=== PATIENT | male | born 1995 | race Caucasian/White ===

== ENCOUNTER 2016-05-04 17:41 | Emergency (ER) | payer OTHER ==
[~2016-05-04] VITALS: Ht 182.9 cm; Wt 73.9 kg
[2016-05-04 17:55] VITALS: TEMP 37.2; Ht 182.9 cm; Wt 73.9 kg
[2016-05-04] MEDS ORDERED: XYLOCAINE 1%/SOD BICARB 20 ML VIAL INFIL ONE (18:45)
--- NOTE | 2016-05-04 19:13 | EMERGENCY ROOM VISIT NOTE ---
ED Visit Note First contact with patient: 18:15 CHIEF COMPLAINT: Hand laceration at work earlier today HISTORY OF PRESENT ILLNESS: Patient is a [id number] 20-year-old white male who cut the back of his right hand at work earlier today. He reached into a cooler, and when he pulled his hand out, noticed bleeding. He had a flap- like laceration on the dorsal aspect of the right second MCP. He was unable to get the bleeding controlled with pressure bandages, and ultimately put superglue over it. The bleeding has stopped. Denies weakness or numbness of the finger. REVIEW OF SYSTEMS: Review of systems as per HPI. All other systems reviewed were negative. At least 6 systems reviewed. PMH: Electronic medical records are reviewed and summarized as above/below. See Problem List. Tetanus is up-to-date. SOCIAL HISTORY: Patient lives at home. College student. PHYSICAL EXAM: Vital Signs: Reviewed Nurse's notes. There is a 1 cm long laceration on the dorsal aspect of the right hand, over the second MCP joint. The edges gape apart with traction. There is no foreign material in the wound and it looks clean. There is no bleeding. No deep structures such as tendons or nerves are seen in the base of the wound. Extension and flexion of the finger is full and strong. Capillary refills less than 2 seconds. EMERGENCY DEPARTMENT COURSE: Using sterile technique, saline and Betadine cleansing, and 1% lidocaine anesthesia, the laceration was repaired with 2, 5-0 nylon sutures. There is no evidence for extensor tendon injury. Current/Historical Medications No Active Prescriptions or Reported Meds Allergies Coded Allergies: Amoxicillin (Verified Allergy, Unknown, Unknown, 05/04/16) Azithromycin (Verified Allergy, Unknown, Unknown, 05/04/16) Penicillins (Verified Allergy, Unknown, Unknown, 05/04/16) Vital Signs Date Time Temp Pulse Resp B/P Pulse Ox O2 Delivery O2 Flow Rate FiO2 05/04/16 19:27 82 18 131/85 95 05/04/16 17:55 37.2 81 18 134/95 95 Room Air Departure Information Impression Primary Impression: Laceration of hand Additional Impression: Work related injury Prescriptions No Active Prescriptions or Reported Meds Referrals No Doctor, Assigned (PCP) Patient Instructions [facility] Additional Instructions Keep wound clean and dry. Do not allow any crusting or dried blood to accumulate on sutures. If this occurs, use a 1:1 solution of hydrogen peroxide/ water on a Q-tip to clean the wound. Use an antibiotic ointment for 3-4 days, then let wound dry. Suture removal in 10-12 days. Return sooner for any signs of infection (increasing redness, swelling, drainage). Ice and elevate for swelling and pain. Ibuprofen 600 mg and Tylenol 1000 mg every 6 hrs for pain. Problem Qualifiers Primary Impression: Laceration of hand Encounter type: initial encounter Laterality: right Qualified Codes: S61.411A - Laceration without foreign body of right hand, initial encounter
[2016-05-04 19:27] VITALS: BP 131/85; PULSE 82; O2SAT 95
== END 2016-05-04 19:31 | disposition home or self-care (01) ==
LOC: C.EDB 17:42 → C.EDD 19:31
DX: S61.411A Laceration without foreign body of right hand, initial encounter (principal); W45.8XXA Other foreign body or object entering through skin, initial encounter; Y92.89 Other specified places as the place of occurrence of the external cause; Y99.0 Civilian activity done for income or pay

== ENCOUNTER 2016-10-17 21:32 | Emergency (ER) | payer OTHER ==
[~2016-10-17] VITALS: Ht 182.9 cm; Wt 78.4 kg
[2016-10-17] MEDS ORDERED: SODIUM CHLORIDE 0.9% 1000ML 1,000 ML IV STA ×2 (21:51)
[2016-10-17] MEDS ORDERED: CEFTRIAXONE SOD INJ 2,000 MG in DEXTROSE 5% 50ML 50 ML IV STA (21:51)
[2016-10-17] MEDS ORDERED: DEXAMETHASONE SOD INJ 10 MG/ML VIAL IV ONE (22:00)
[2016-10-17] MEDS ORDERED: FEXO1TAB49 PO (22:02)
[2016-10-17 22:09] VITALS: Ht 182.9 cm; Wt 78.4 kg
--- NOTE | 2016-10-17 22:21 | DIAGNOSTIC IMAGING REPORT ---
CHEST ONE VIEW PORTABLE CLINICAL HISTORY: Sepsis. COMPARISON STUDY: No previous studies for comparison. FINDINGS: Lung volumes are normal. Lungs are clear. There is no pneumothorax or pleural effusion. Cardiac size is normal. Mediastinal contours are normal. There is no evidence of pulmonary edema. IMPRESSION: No acute cardiopulmonary findings. Electronically signed by: Dorian Parkinson M.D. 10/17/2016 10:20 PM Dictated Date/Time: 10/17/2016 10:18 PM
[2016-10-17 22:41] LABS: BASO % 0.3 %; BASO ABS # 0.03 K/uL (0-0.2); COMPLETE YES; EOS % 1.2 %; HEMATOCRIT 42.8 % (42-52); IG% 0.3 %; LYMPH % 19.9 %; LYMPH ABS # 1.89 K/uL (1.2-3.4); MEAN CORPUSCULAR HEMOGLOBIN 31.5 pg (25-34); MEAN CORPUSCULAR HGB CONC 36.2 g/dl (32-36); MEAN PLATELET VOLUME 10.8 fL (7.4-10.4); MONO % 8.9 %; NEUT % 69.4 %; PLATELET COUNT 218 K/uL (130-400); RED BLOOD COUNT 4.92 M/uL (4.7-6.1); WHITE BLOOD COUNT 9.52 K/uL (4.8-10.8)
[2016-10-17 22:50] LABS: PARTIAL THROMBOPLASTIN RATIO 1.1
[2016-10-17 22:58] LABS: BUN/CREATININE RATIO 15.4 (10-20); CALCIUM 9.3 mg/dl (8.5-10.1); CREATININE 1.1 mg/dl (0.60-1.40); POTASSIUM 3.7 mmol/L (3.5-5.1)
--- NOTE | 2016-10-17 23:00 | DIAGNOSTIC IMAGING REPORT ---
CT OF THE HEAD WITHOUT CONTRAST CLINICAL HISTORY: ALCANTARA/fever/neck stiff. COMPARISON STUDY: No previous studies for comparison. CT DOSE: 537.48 mGy.cm TECHNIQUE: Helical axial images of the head were obtained without IV contrast. Automated exposure control was utilized for the study. A dose lowering technique was utilized adhering to the principles of ALARA. FINDINGS: No acute intracranial hemorrhage, midline shift or mass effect is present. Ventricular system is normal. Basilar cisterns are patent. No extra-axial collections are present. Combs-white differentiation is maintained. There are no findings to suggest acute dural sinus thrombosis or acute territorial infarct. There are no calvarial abnormalities. Visualized portions of the sinuses and the mastoid air cells are clear. The adenoids are enlarged. IMPRESSION: 1. No acute intracranial findings. 2. Enlarged adenoids. Electronically signed by: Dorian Parkinson M.D. 10/17/2016 10:58 PM Dictated Date/Time: 10/17/2016 10:54 PM
[2016-10-17 23:01] LABS: ALB/GLOB RATIO 1.1 (0.9-2)
[2016-10-17 23:27] LABS: LYME DISEASE AB IGG NEG (NEG); LYME DISEASE AB IGM NEG (NEG)
[2016-10-17 23:58] LABS: CSF TOTAL PROTEIN 41.4 mg/dl (15.0-45.0)
[2016-10-18 00:01] LABS: URINE APPEARANCE CLEAR (CLEAR); URINE BILIRUBIN NEG (NEG); URINE COLOR YELLOW; URINE NITRITE NEG (NEG); URINE PH 6.5 (4.5-7.5); URINE SPECIFIC GRAVITY 1.023 (1.000-1.030); UROBILINOGEN NEG (NEG); ZZUR CULT IF INDIC CLEAN CATCH NO
[2016-10-18 00:06] LABS: CSF APPEARANCE CLEAR; CSF COLOR COLORLESS; CSF XANTHOCHROMIC NO XANTHOCHROMIA
[2016-10-18 00:07] LABS: CSF CHEMISTRY TUBE # 2
[2016-10-18 00:11] LABS: MANUAL MICROSCOPIC REQUIRED? NO; REVIEW REQ? NO
--- NOTE | 2016-10-18 00:26 | EMERGENCY ROOM VISIT NOTE ---
History First contact with patient: 21:39 Chief Complaint: NECK PAIN Stated Complaint: SORE THROAT, STIFF NECK, HEAD/NECK PAIN History of Present Illness The patient is a 21 year old male who presents to the Emergency Room with complaints of headache, neck stiffness, fever, chills, occasional sore throat with cough that has been steadily increasing for the past 3 days has had an on and off sore throat for the past 3 weeks. Patient was at urgent care 3 weeks ago and had a negative strep test. He went health services for a sore in the back of his throat and was not told anything about this but was not given any medications for this. Patient states today he went to the health services as his symptoms were increasing mid did a Monospot that was negative and a repeat strep test was negative. He was told this could possibly be meningitis. Patient then comes here as his symptoms are getting progressively worse. Patient states max temperature is 101 on Saturday. He took Motrin today at 1 PM. He states his neck feels stiff when he bends it and has a frontal headache described as throbbing, 6 out of 10. Nothing makes it better or worse. No history of tick bites. [place] travel [place] Patient is a [employer] student. Patient denies chest pain, dyspnea, dysphagia, abdominal pain, vomiting, diarrhea. He is time by mouth fluids and food. No rashes. Review of Systems See HPI for pertinent positives & negatives. A total of 10 systems reviewed and were otherwise negative. Past Medical/Surgical History Medical Problems: (1) No Known Active Medical Problems Social History Smoking Status: Never Smoker Smokeless Tobacco Use: Yes Alcohol Use: occasionally Drug Use: none Occupation Status: [employer] student Current/Historical Medications Scheduled PRN Fexofenadine Hcl (Leigh Allergy), 1 TAB PO DAILY PRN for CONGESTION Physical Exam Vital Signs Date Time Temp Pulse Resp B/P (MAP) Pulse Ox O2 Delivery O2 Flow Rate FiO2 10/18/16 00:12 36.9 66 16 141/80 98 Room Air 10/17/16 23:03 70 20 130/90 99 Room Air 10/17/16 22:21 79 10/17/16 22:09 Room Air 10/17/16 21:36 37.1 91 16 149/109 97 Room Air Physical Exam VITALS: Vitals are noted on the nurse's note and reviewed by myself. Vital signs stable. GENERAL: Pleasant male, in no acute distress, nondiaphoretic, well-developed well-nourished. SKIN: The skin was without rashes, erythema, edema, or bruising. There is no tenting of the skin. Capillary reflex less than 2 seconds. HEAD: Normocephalic atraumatic. EARS: External auditory canals clear, tympanic membranes pearly combs without erythema or effusion bilaterally. EYES: Pupils equal round and reactive to light and accommodation. Conjunctivae without injection, sclerae without icterus. Extraocular movements intact. NOSE: Patent, turbinates without inflammation or discharge. No sinus tenderness. MOUTH: Mucous membranes moist. Pharynx with mild erythema without exudate. Uvula midline. Airway patent. Tongue does not deviate. NECK: Supple without nuchal rigidity. Patient complained of posterior neck discomfort with chin to chest. No lymphadenopathy. No thyromegaly. Cervical spine is nontender. No JVD. HEART: Regular rate and rhythm without murmurs gallops or rubs. LUNGS: Clear to auscultation bilaterally without wheezes, rales or rhonchi. No dullness to percussion. No retractions or accessory muscle use. ABDOMEN: Positive bowel sounds x 4. Normal tympanic percussion. Soft, nontender, without masses or organomegaly. Blair sign negative. No guarding or rebound tenderness. MUSCULOSKELETAL: No muscle atrophy, erythema, or edema noted. NEURO: Patient was alert and oriented to person place and time. Normal sensation to light and sharp touch. No focal neurological deficits. Medical Decision & Procedures Laboratory Results 10/17/16 22:12 Red Blood Count 4.92, Mean Corpuscular Volume 87.0, Mean Corpuscular Hemoglobin 31.5, Mean Corpuscular Hemoglobin Concent 36.2, Mean Platelet Volume 10.8, Neutrophils (%) (Auto) 69.4, Lymphocytes (%) (Auto) 19.9, Monocytes (%) (Auto) 8.9, Eosinophils (%) (Auto) 1.2, Basophils (%) (Auto) 0.3, Neutrophils # (Auto) 6.61, Lymphocytes # (Auto) 1.89, Monocytes # (Auto) 0.85, Eosinophils # (Auto) 0.11, Basophils # (Auto) 0.03 7/26/17 22:12 Test 10/17/16 22:12 10/17/16 22:30 10/17/16 23:20 10/17/16 23:40 White Blood Count 9.52 K/uL (4.8-10.8) Red Blood Count 4.92 M/uL (4.7-6.1) Hemoglobin 15.5 g/dL (14.0-18.0) Hematocrit 42.8 % (42-52) Mean Corpuscular Volume 87.0 fL (80-100) Mean Corpuscular Hemoglobin 31.5 pg (25-34) Mean Corpuscular Hemoglobin Concent 36.2 g/dl (32-36) Platelet Count 218 K/uL (130-400) Mean Platelet Volume 10.8 fL (7.4-10.4) Neutrophils (%) (Auto) 69.4 % Lymphocytes (%) (Auto) 19.9 % Monocytes (%) (Auto) 8.9 % Eosinophils (%) (Auto) 1.2 % Basophils (%) (Auto) 0.3 % Neutrophils # (Auto) 6.61 K/uL (1.4-6.5) Lymphocytes # (Auto) 1.89 K/uL (1.2-3.4) Monocytes # (Auto) 0.85 K/uL (0.11-0.59) Eosinophils # (Auto) 0.11 K/uL (0-0.5) Basophils # (Auto) 0.03 K/uL (0-0.2) RDW Standard Deviation 38.2 fL (36.4-46.3) RDW Coefficient of Variation 12.0 % (11.5-14.5) Immature Granulocyte % (Auto) 0.3 % Immature Granulocyte # (Auto) 0.03 K/uL (0.00-0.02) Prothrombin Time 11.0 SECONDS (9.0-12.0) Prothromb Time International Ratio 1.0 (0.9-1.1) Activated Partial Thromboplast Time 27.4 SECONDS (21.0-31.0) Partial Thromboplastin Ratio 1.1 Anion Gap 6.0 mmol/L (3-11) Est Creatinine Clear Calc Drug Dose 116.6 ml/min Estimated GFR () 110.6 Estimated GFR (Non- 95.5 BUN/Creatinine Ratio 15.4 (10-20) Calcium Level 9.3 mg/dl (8.5-10.1) Total Bilirubin 0.3 mg/dl (0.2-1) Aspartate Amino Transf (AST/SGOT) 14 U/L (15-37) Alanine Aminotransferase (ALT/SGPT) 33 U/L (12-78) Alkaline Phosphatase 65 U/L (45-117) Total Protein 7.6 gm/dl (6.4-8.2) Albumin 3.9 gm/dl (3.4-5.0) Globulin 3.7 gm/dl (2.5-4.0) Albumin/Globulin Ratio 1.1 (0.9-2) Lyme Disease IgG Antibody NEG (NEG) Lyme Disease IgM Antibody NEG (NEG) Monoscreen NEG (NEG) Bedside Lactic Acid Venous 0.52 mmol/L (0.90-1.70) CSF Color COLORLESS CSF Appearance CLEAR CSF WBC 1 /uL (0-5) CSF RBC 0 /uL (0) CSF Xanthrochromic NO XANTHOCHROMIA CSF Cell Count Tube # 4 CSF Chemistry Tube # 2 CSF Glucose 54 mg/dl (40-70) CSF Total Protein 41.4 mg/dl (15.0-45.0) Urine Color YELLOW Urine Appearance CLEAR (CLEAR) Urine pH 6.5 (4.5-7.5) Urine Specific [place] 1.023 (1.000-1.030) Urine Protein NEG (NEG) Urine Glucose (UA) NEG (NEG) Urine Ketones NEG (NEG) Urine Occult Blood NEG (NEG) Urine Nitrite NEG (NEG) Urine Bilirubin NEG (NEG) Urine Urobilinogen NEG (NEG) Urine Leukocyte Esterase NEG (NEG) Urine WBC (Auto) 0 /hpf (0-5) Urine RBC (Auto) 0-4 /hpf (0-4) Urine Hyaline Casts (Auto) 1-5 /lpf (0-5) Urine Epithelial Cells (Auto) 5-10 /lpf (0-5) Urine Bacteria (Auto) NEG (NEG) Medications Administered Medications (Trade) Dose Ordered Sig/Rut Route Start Time Stop Time Status Last Admin Dose Admin Sodium Chloride 1,000 ml @ 999 mls/hr Q1H1M STAT IV 10/17/16 21:51 10/17/16 22:51 DC 10/17/16 22:10 999 MLS/HR Sodium Chloride 1,000 ml @ 125 mls/hr Q8H STAT IV 10/17/16 21:51 10/18/16 05:50 10/17/16 23:37 125 MLS/HR Dexamethasone Sodium Phosphate (Decadron Inj) 10 mg NOW ONCE IV 10/17/16 22:00 10/17/16 22:01 DC 10/17/16 22:59 10 MG Ceftriaxone Sodium 2000 mg/ Dextrose 70 ml @ 100 mls/hr ONE STAT IV 10/17/16 21:51 10/17/16 22:32 DC 10/17/16 22:59 100 MLS/HR Procedure Lumbar Puncture Indication: r/o meningitis. Verbal consent was obtained after the risks and benefits were explained, including but not limited to headache, bleeding/clotting, scarring, infection, pain, and bone/joint/nerve damage. At this time, the risks of the procedure are less than the risks of NOT performing the procedure. A time out was taken and the correct patient and site identified. The patient was placed in the sitting position and the back was prepped with betadine and draped in the standard fashion. The L3 intervertebral space was identified, anesthetized locally with 1 % lidocaine without epinephrine, and the spinal needle was inserted through the skin with the bevel parallel to the dural fibers. The needle was carefully advanced into the lumbar cistern and 4 tubes of clear CSF was obtained. The stylet was replaced and the needle was removed. A bandaid was placed and the patient was placed in the supine position. The patient tolerated the procedure well and there were no complications. ED Course Prior records/ancillary studies reviewed. Triage Nursing notes reviewed. The patient's history was concerning for fever, sore throat, headache, neck discomfort. Differential diagnosis: Etiologies such as viral syndrome, lymes, mono, otitis, pharyngitis, pneumonia, influenza, meningitis, urinary tract infection, sepsis, bacteremia, as well as others were entertained. Physical examination: Patient is alert and tolerating fluids ER treatment provided: IV fluids, Decadron, Rocephin On reassessment the patient felt better. Diagnostics interpreted by me: The labs revealed negative CSF. Negative lactic acid Blood cultures pending Imaging studies: CHEST ONE VIEW PORTABLE CLINICAL HISTORY: Sepsis. COMPARISON STUDY: No previous studies for comparison. FINDINGS: Lung volumes are normal. Lungs are clear. There is no pneumothorax or pleural effusion. Cardiac size is normal. Mediastinal contours are normal. There is no evidence of pulmonary edema. IMPRESSION: No acute cardiopulmonary findings. Electronically signed by: Dorian Parkinson M.D. CT OF THE HEAD WITHOUT CONTRAST CLINICAL HISTORY: [place]/fever/neck stiff. COMPARISON STUDY: No previous studies for comparison. CT DOSE: 537.48 mGy.cm TECHNIQUE: Helical axial images of the head were obtained without IV contrast. Automated exposure control was utilized for the study. A dose lowering technique was utilized adhering to the principles of ALARA. FINDINGS: No acute intracranial hemorrhage, midline shift or mass effect is present. Ventricular system is normal. Basilar cisterns are patent. No extra-axial collections are present. Combs-white differentiation is maintained. There are no findings to suggest acute dural sinus thrombosis or acute territorial infarct. There are no calvarial abnormalities. Visualized portions of the sinuses and the mastoid air cells are clear. The adenoids are enlarged. IMPRESSION: 1. No acute intracranial findings. 2. Enlarged adenoids. Electronically signed by: Dorian Parkinson M.D. This appears to be consistent with headache, fever and sore throat with neck discomfort most likely viral in etiology. Negative meningitis workup. Negative Lyme's test. Negative lactic acid.. Patient was neurovascularly and neurologically intact. He is well-appearing. He was counseled on the LP and spinal headaches. He was advised to rest, stay well-hydrated and follow-up health services a day or 2 or here in the ER sooner for high fevers, lethargy, spinal headache, worsening signs or symptoms or as needed. By the evaluation outlined above emergent etiologies such as otitis, pharyngitis, pneumonia, meningitis, urinary tract infection, sepsis, bacteremia, as well as others were deemed relatively unlikely. The pt informed about the findings as listed above. All questions were answered and pleased with the treatment. Return instructions were outlined and the patient was discharged in stable condition. Referral: The patient was referred back to their primary care physician for follow-up in 2 to 3 days for a recheck of the current condition. Case reviewed with my attending Medical Decision As above Medication Reconcilliation Current Medication List: was personally reviewed by me Blood Pressure Screening Patient's blood pressure: Normal blood pressure Impression Primary Impression: Headache Additional Impression: Pharyngitis Departure Information Dispostion Home / Self-Care Condition GOOD Referrals No Doctor, Assigned (PCP) Patient Instructions [facility] Additional Instructions You had a lumbar puncture today. If you develope a headache when you sit up that resolves when you lay down and does not go away Tylenol or Motrin you may come to the ER for possible blood patch for the next 48 hours. Acetaminophen(Tylenol) may be used for fever or pain. Use 1000mg every six hours as needed. Avoid using more than 4000mg in a 24 hour period. (AND/OR) Ibuprofen(Motrin, Advil) may be used for fever or pain. Use 600mg every six hours as needed. Take with food. Avoid using more than 2400mg in a 24 hour period. Do not use 2400mg per day for more than three consecutive days without physician direction. Prolonged inappropriate use can lead to stomach upset or ulcers. Afrin nasal spray: 2-3 sprays to each nostril twice daily as needed for congestion. Do not use for more than 3-4 days because it can lead to worsening rebound congestion. Pseudoephedrine(Sudaphed): 30-60mg every 6 hours as needed for nasal congestion. Do not take this with other stimulant products or supplements. Rest and drink plenty of fluids. Controlling your fever with Tylenol and Ibuprofen as above will make you feel better. Wash your hands after nose blowing, sneezing, or coughing. Most germs are spread through contact, therefore improper hygiene may result in your close contacts and loved ones becoming ill just like you. Continue current medications. Return to the ER for severe headache, neck stiffness, chest pain, difficulty breathing, fevers, vomiting, worsening of your condition, or as needed. Follow up with your primary physician this week for a recheck of your current condition. Problem Qualifiers Primary Impression: Headache Headache type: unspecified Headache chronicity pattern: acute headache Intractability: not intractable Qualified Codes: R51 - Headache
[2016-10-18 00:47] VITALS: BP 136/84; PULSE 73; TEMP 36.8; O2SAT 98
== END 2016-10-18 00:48 | disposition home or self-care (01) ==
LOC: C.EDB 21:34
DX: R51 Headache (principal); J02.9 Acute pharyngitis, unspecified; F17.290 Nicotine dependence, other tobacco product, uncomplicated

== ENCOUNTER 2016-10-19 13:50 | Emergency (ER) | payer OTHER ==
[~2016-10-19] VITALS: Ht 182.9 cm; Wt 79.8 kg
[~2016-10-19 13:50] MED LIST: FEXO1TAB49 PO
[2016-10-19 13:53] VITALS: TEMP 36.7; Ht 182.9 cm; Wt 79.8 kg
[2016-10-19] MEDS ORDERED: SODIUM CHLORIDE 0.9% 1000ML 1,000 ML IV STA (14:15)
[2016-10-19] MEDS ORDERED: CAFFEINE CITRATE 500 MG in SODIUM CHLORIDE 0.9% 1000ML 1,000 ML IV ONE (14:30)
[2016-10-19 17:00] VITALS: O2SAT 99
[2016-10-19] MEDS ORDERED: BUTALBITAL/ACETAMIN/CAFFEINE TAB PO STA (17:26)
[2016-10-19] MEDS ORDERED: EMPTY 8 DRAM VIAL ONE (17:34)
[2016-10-19] MEDS ORDERED: KETOROLAC TROMETHAMINE 30 MG/ML VIAL IV STA (18:06)
[2016-10-19 18:20] VITALS: BP 138/101; PULSE 80
--- NOTE | 2016-10-19 20:17 | EMERGENCY ROOM VISIT NOTE ---
History Report prepared by Alhaji: Ben Dill Under the Supervision of: Dr. Carmelo Peralta M.D. First contact with patient: 13:58 Chief Complaint: HEADACHE Stated Complaint: ALCANTARA WHEN SITTING/STANDING-RECENT LUMBAR PUNCTURE History of Present Illness The patient is a 21 year old male who presents to the Emergency Room with complaints of an intermittent headache beginning 2 days ago. The patient's records state that he was seen 2 days ago in the ED for a headache, neck stiffness, and fever to rule out meningitis. They note that a lumbar puncture was performed, and it was negative. The patient states that since then, he develops a headache anytime he tries to stand up or move. He reports that yesterday his headache was a 7/10, and today it was a 6/10. The patient states that it his headache inhibits his daily activities. He reports that yesterday he was walking home from class and got extremely lightheaded. The patient notes that when he lies down, his headache is resolved. He states that his previous flu symptoms have resolved. The patient reports that he tried taking Motrin and Tylenol, but they did not help. He notes that he only takes a daily dose of Leigh. The patient denies other medical problems. Pt denies LOC, fevers, chills, diaphoresis, visual changes, neck pain, chest pain, breathing difficulties, nausea, vomiting, abdominal pain, back pain, melena, hematochezia , urinary symptoms, numbness, weakness, lymphadenopathy, rash, or other complaints. Source of History: patient Onset: 2 days ago Position: head Quality: ache Timing: intermittent Modifying Factors (Worsening): exertion, movement, other (sitting up) Modifying Factors (Relieving): rest Note: Associated symptoms: lightheadedness Review of Systems See HPI for pertinent positives and negatives. A total of ten systems were reviewed and were otherwise negative. Past Medical & Surgical Medical Problems: (1) Asthma (2) Bronchitis (3) Skin problem Family History Cancer Diabetes mellitus Heart disease Hypertension Social History Smoking Status: Never Smoker Smokeless Tobacco Use: Yes (1/3 can a day) Alcohol Use: occasionally Drug Use: none Occupation Status: [employer] student Current/Historical Medications Scheduled PRN Fexofenadine Hcl (Leigh Allergy), 1 TAB PO DAILY PRN for CONGESTION Allergies Coded Allergies: Amoxicillin (Verified Allergy, Unknown, HAPPENED A CHILD, 10/17/16) Azithromycin (Verified Allergy, Unknown, HAPPENED A CHILD, 10/17/16) Penicillins (Verified Allergy, Unknown, HAPPENED A CHILD, 10/17/16) Physical Exam Vital Signs Date Time Temp Pulse Resp B/P (MAP) Pulse Ox O2 Delivery O2 Flow Rate FiO2 10/19/16 18:20 80 20 138/101 10/19/16 17:00 76 20 138/99 99 Room Air 10/19/16 16:05 72 20 145/100 99 Room Air 10/19/16 13:53 36.7 77 18 142/93 97 Room Air Physical Exam GENERAL: Awake, alert, well appearing, no distress HENT: Normocephalic, atraumatic. TM's normal. Oropharynx unremarkable. EYES: PERRL. EOMI. Normal conjunctiva. Sclera non-icteric. NECK: Supple. No nuchal rigidity. FROM. No JVD or bruit. RESPIRATORY: CTA CARDIAC: RRR. No murmur. ABDOMEN: Soft, non distended. No tenderness to palpation. No rebound or guarding. No masses. RECTAL: Deferred. MUSCULOSKELETAL: Unremarkable. No edema. No discoloration. Gross motor strength symmetric. NEURO: Cranial nerves 2-12 grossly intact. Normal sensorium. No sensory or motor deficits noted. Speech normal. No pronator drift. Subjective return of headache from changing form supine to seated position. SKIN: No rash or jaundice noted. LYMPH: No adenopathy. Medical Decision & Procedures Medications Administered Medications (Trade) Dose Ordered Sig/Rut Route Start Time Stop Time Status Last Admin Dose Admin Sodium Chloride 1,000 ml @ 999 mls/hr Q1H1M STAT IV 10/19/16 14:15 10/19/16 15:15 DC 10/19/16 14:43 999 MLS/HR Caffeine Citrated 500 mg/Sodium Chloride 1,025 ml @ 512.5 mls/ hr TODAY@1430 ONCE IV 10/19/16 14:30 10/19/16 16:29 DC 10/19/16 14:47 512.5 MLS/HR Acetaminophen/ Butalbital/ Caffeine (Fioricet Tab) 4 tab NOW STAT PO 10/19/16 17:26 10/19/16 17:28 DC 10/19/16 18:17 4 TAB Ketorolac Tromethamine (Toradol Inj) 30 mg NOW STAT IV 10/19/16 18:06 10/19/16 18:07 DC 10/19/16 18:14 30 MG ED Course 1411: The patient was evaluated in room B02. A complete history and physical exam was performed. 1415: Ordered Sodium Chloride 1000 ml @ 999 mls/hr IV 1430: Ordered Caffeine Citrated 500 mg/Sodium Chloride 1025 ml @ 512.5 mls/hr IV 1531: I reevaluated the patient. His headache is resolved, and he is [facility] through his caffeine infusion. 1726: Ordered Fioricet Tab 4 tab PO 1758: I reevaluated the patient. He was symptoms free until he stood up to leave. His symptoms reappeared. I discussed conservative management or further work-up in the ED. The patient asked for conservative management. I gave him a dose of Toradol. 1806: Ordered Toradol Inj 30 mg IV 1825: Discussed results and discharge instructions: he verbalized understanding and agreement. The patient is ready for discharge. Medical Decision Triage Nursing notes reviewed. The patient's presentation and history were concerning for headache after lumbar puncture. Etiologies such as post lumbar puncture headache, Migraine, tumor, headache, sinus thrombosis, temporal arteritis, sinusitis, CVA, ICH, SAH, infection, as well as others were entertained. the patient was evaluated. He was nonfocal. He had no symptoms going down. Sitting him up because the headache. This seems to be very consistent with a post-lumbar puncture headache. He was hydrated with 1 L of normal saline and given IV caffeine. On reassessment his headache had resolved. He was able to sit up without difficulty. The patient finished his IV caffeine infusion. He was reassessed. The patient was doing well. I talked about conservative management versus blood patch and the patient felt comfortable trying to go home. Just prior to discharge the patient noted some slight increase in his headache but it was significantly better than when he arrived. I offered a dose of IV Toradol and he accepted. The patient still would like to try to go home. He was counseled that if he worsens in any way or develops other symptoms that he will need to come back and likely need a blood patch. I did give him some Fioricet to go home with Just in case. He will rest. He'll drink plenty of fluids. He will hydrate. By the evaluation outlined above other emergent etiologies such as those listed in the differential, as well as others, were deemed relatively unlikely. The patient was educated about the findings as listed above. All questions were answered and the patient was pleased with the treatment. Return instructions were outlined and the patient was discharged in stable condition. The patient was referred to [facility] for follow-up for a recheck of the current condition. Impression Primary Impression: Post lumbar puncture headache Scribe Attestation The scribe's documentation has been prepared under my direction and personally reviewed by me in its entirety. I confirm that the note above accurately reflects all work, treatment, procedures, and medical decision making performed by me. Departure Information Dispostion Home / Self-Care Referrals No Doctor, Assigned (PCP) Forms HOME CARE DOCUMENTATION FORM, IMPORTANT VISIT INFORMATION Patient Instructions My [facility] Additional Instructions HEADACHE INSTRUCTIONS: Rest and drink plenty of fluids today. Caffeinated beverages are recommended. Rest today in a quiet, peaceful, dark environment and get a full 8-10 hrs of sleep tonight. Avoid loud noises, smoke/smoking, alcohol, bright lights, stress, or physical exertion today to minimize the chance the headache may return. Fioricet: Take one pill every 4 hours as needed for headache. Do not drink alcohol or drive with taking this medication. It may cause drowsiness. Ibuprofen(Motrin, Advil) may be used for fever or pain. Use 600mg every six hours as needed. Take with food. Avoid using more than 2400mg in a 24 hour period. Do not use 2400mg per day for more than three consecutive days without physician direction. Prolonged inappropriate use can lead to stomach upset or ulcers. Return to the ER for passing out, worsening headache, vision problems, neck stiffness/pain, fevers, vomiting, worsening of your condition, or as needed. Follow up with [facility] services on Saturday for a recheck of your current condition.
== END 2016-10-19 18:22 | disposition home or self-care (01) ==
LOC: C.EDB 13:51
DX: R51 Headache (principal); J45.909 Unspecified asthma, uncomplicated; Z83.3 Family history of diabetes mellitus; Z82.49 Family history of ischemic heart disease and other diseases of the circulatory system

== ENCOUNTER 2016-10-20 17:30 | Emergency (ER) | payer OTHER ==
[~2016-10-20] VITALS: Ht 182.9 cm; Wt 78.3 kg
[2016-10-20 17:41] VITALS: TEMP 36.8; Ht 182.9 cm; Wt 78.3 kg
[2016-10-20] MEDS ORDERED: ONDANSETRON INJ 2 MG/ML 2 ML VIAL IV STA (18:02)
[2016-10-20] MEDS ORDERED: HYDROmorphone INJ 0.5 MG/0.5 ML SYR IV STA (18:02)
[2016-10-20 18:43] LABS: BASO % 0.5 %; BASO ABS # 0.03 K/uL (0-0.2); COMPLETE YES; EOS % 1.5 %; HEMATOCRIT 43.5 % (42-52); IG% 0.6 %; LYMPH % 33.9 %; LYMPH ABS # 2.22 K/uL (1.2-3.4); MEAN CELL VOLUME 86.7 fL (80-100); MEAN CORPUSCULAR HEMOGLOBIN 30.5 pg (25-34); MEAN CORPUSCULAR HGB CONC 35.2 g/dl (32-36); MEAN PLATELET VOLUME 10.7 fL (7.4-10.4); NEUT % 54.5 %; PLATELET COUNT 264 K/uL (130-400); RED BLOOD COUNT 5.02 M/uL (4.7-6.1); WHITE BLOOD COUNT 6.54 K/uL (4.8-10.8)
--- NOTE | 2016-10-20 18:48 | DIAGNOSTIC IMAGING REPORT ---
CHEST ONE VIEW PORTABLE CLINICAL HISTORY: RIGHT CHEST PAIN COMPARISON STUDY: Chest radiograph October 17, 2016. FINDINGS: Lung volumes are normal. Lungs are clear. There is no pneumothorax or pleural effusion. Cardiac size is normal. Mediastinal contours are normal. There is no evidence of pulmonary edema. IMPRESSION: No acute cardiopulmonary findings. Electronically signed by: Dorian Parkinson M.D. 10/20/2016 6:47 PM Dictated Date/Time: 10/20/2016 6:46 PM
[2016-10-20 18:52] LABS: PROTHROMBIN TIME (PATIENT) 11.1 SECONDS (9.0-12.0)
[2016-10-20 19:00] LABS: BLOOD UREA NITROGEN 11 mg/dl (7-18); CALCIUM 9.1 mg/dl (8.5-10.1); CARBON DIOXIDE 34 mmol/L (21-32); CHLORIDE 106 mmol/L (98-107); GLUCOSE 86 mg/dl (70-99); POTASSIUM 3.7 mmol/L (3.5-5.1); SODIUM 142 mmol/L (136-145)
--- NOTE | 2016-10-20 20:24 | EMERGENCY ROOM VISIT NOTE ---
History Report prepared by Alhaji: John Tierney Under the Supervision of: Dr. Carmelo Peralta M.D. First contact with patient: 17:38 Chief Complaint: HEADACHE Stated Complaint: HEADACHE FROM LUMBAR PUNCTURE History of Present Illness The patient is a 21 year old male who presents to the Emergency Room with complaints of an intermittent headache that started three days ago. He rates his discomfort as a 6/10 in severity. The patient is accompanied by his father who states that the patient was experiencing low grade fevers and neck stiffness a couple of weeks ago. He states that he told the patient to wait a week or two to see if symptoms resolved until going to the doctor. Per his report, the patient was in the ED three days ago and had a lumbar puncture performed showing a negative result. He states that following the visit, his flu like symptoms resolved, but a headache developed, which worsened with movement. Per his report, the patient took Tylenol and Motrin, but denies any relief of symptoms. The patient states that the headache persisted which prompted him to visit the ED. The patient states that he visited the ED yesterday for his headache and was given IV medication. He states that he reacted well to the IV medication and was discharged home with pain medication. The patient states that once he got home, the medication wore off. He states that he took his pills last night and this morning, but denies any relief of symptoms. He also reports intermittent chest pain occurring two days ago, once this morning, and once tonight. The patient denies LOC, fevers, chills, diaphoresis, visual changes, neck pain, breathing difficulties, nausea, vomiting, abdominal pain, back pain, melena, hematochezia, urinary symptoms, numbness, weakness, lymphadenopathy, rash, or other complaints. Source of History: patient Onset: three days ago Symptom Intensity: 6/10 Timing: intermittent Modifying Factors (Worsening): movement Modifying Factors (Relieving): rest Associated Symptoms: + chest pain Review of Systems See HPI for pertinent positives and negatives. A total of ten systems were reviewed and were otherwise negative. Past Medical & Surgical Medical Problems: (1) Asthma (2) Bronchitis (3) Skin problem Family History Cancer Diabetes mellitus Heart disease Hypertension Social History Smoking Status: Never Smoker Alcohol Use: occasionally Drug Use: none Occupation Status: [employer] student Current/Historical Medications Scheduled PRN Fexofenadine Hcl (Leigh Allergy), 1 TAB PO DAILY PRN for CONGESTION Allergies Coded Allergies: Amoxicillin (Verified Allergy, Unknown, HAPPENED A CHILD, 10/17/16) Azithromycin (Verified Allergy, Unknown, HAPPENED A CHILD, 10/17/16) Penicillins (Verified Allergy, Unknown, HAPPENED A CHILD, 10/17/16) Physical Exam Vital Signs Date Time Temp Pulse Resp B/P (MAP) Pulse Ox O2 Delivery O2 Flow Rate FiO2 10/20/16 19:38 87 16 128/64 96 Room Air 10/20/16 17:41 36.8 91 18 132/87 97 Room Air Physical Exam GENERAL: Awake, alert, well appearing, no distress HENT: Normocephalic, atraumatic. TM's normal. Oropharynx unremarkable. EYES: PERRL. EOMI. Normal conjunctiva. Sclera non-icteric. NECK: Supple. No nuchal rigidity. FROM. No JVD or bruit. RESPIRATORY: CTA CARDIAC: RRR. No murmur. ABDOMEN: Soft, non distended. No tenderness to palpation. No rebound or guarding. No masses. RECTAL: Deferred. MUSCULOSKELETAL: Unremarkable. No edema. No discoloration. Gross motor strength symmetric. NEURO: Cranial nerves 2-12 grossly intact. Normal sensorium. No sensory or motor deficits noted. Gait normal. Speech normal. No pronator drift. Negative rhomberg. SKIN: No rash or jaundice noted. LYMPH: No adenopathy. Medical Decision & Procedures ER Provider Diagnostic Interpretation: X-ray: Per my interpretation, radiologist review. CHEST ONE VIEW PORTABLE CLINICAL HISTORY: RIGHT CHEST PAIN COMPARISON STUDY: Chest radiograph October 17, 2016. FINDINGS: Lung volumes are normal. Lungs are clear. There is no pneumothorax or pleural effusion. Cardiac size is normal. Mediastinal contours are normal. There is no evidence of pulmonary edema. IMPRESSION: No acute cardiopulmonary findings. Electronically signed by: Dorian Parkinson M.D. 10/20/2016 6:47 PM Dictated Date/Time: 10/20/2016 6:46 PM Laboratory Results 10/20/16 18:20 Red Blood Count 5.02, Mean Corpuscular Volume 86.7, Mean Corpuscular Hemoglobin 30.5, Mean Corpuscular Hemoglobin Concent 35.2, Mean Platelet Volume 10.7, Neutrophils (%) (Auto) 54.5, Lymphocytes (%) (Auto) 33.9, Monocytes (%) (Auto) 9.0, Eosinophils (%) (Auto) 1.5, Basophils (%) (Auto) 0.5, Neutrophils # (Auto) 3.56, Lymphocytes # (Auto) 2.22, Monocytes # (Auto) 0.59, Eosinophils # (Auto) 0.10, Basophils # (Auto) 0.03 10/20/16 18:20 Test 10/20/16 18:20 White Blood Count 6.54 K/uL (4.8-10.8) Red Blood Count 5.02 M/uL (4.7-6.1) Hemoglobin 15.3 g/dL (14.0-18.0) Hematocrit 43.5 % (42-52) Mean Corpuscular Volume 86.7 fL (80-100) Mean Corpuscular Hemoglobin 30.5 pg (25-34) Mean Corpuscular Hemoglobin Concent 35.2 g/dl (32-36) Platelet Count 264 K/uL (130-400) Mean Platelet Volume 10.7 fL (7.4-10.4) Neutrophils (%) (Auto) 54.5 % Lymphocytes (%) (Auto) 33.9 % Monocytes (%) (Auto) 9.0 % Eosinophils (%) (Auto) 1.5 % Basophils (%) (Auto) 0.5 % Neutrophils # (Auto) 3.56 K/uL (1.4-6.5) Lymphocytes # (Auto) 2.22 K/uL (1.2-3.4) Monocytes # (Auto) 0.59 K/uL (0.11-0.59) Eosinophils # (Auto) 0.10 K/uL (0-0.5) Basophils # (Auto) 0.03 K/uL (0-0.2) RDW Standard Deviation 37.6 fL (36.4-46.3) RDW Coefficient of Variation 11.8 % (11.5-14.5) Immature Granulocyte % (Auto) 0.6 % Immature Granulocyte # (Auto) 0.04 K/uL (0.00-0.02) Prothrombin Time 11.1 SECONDS (9.0-12.0) Prothromb Time International Ratio 1.0 (0.9-1.1) Activated Partial Thromboplast Time 26.4 SECONDS (21.0-31.0) Partial Thromboplastin Ratio 1.0 Anion Gap 2.0 mmol/L (3-11) Est Creatinine Clear Calc Drug Dose 116.6 ml/min Estimated GFR () 110.6 Estimated GFR (Non- 95.5 BUN/Creatinine Ratio 10.0 (10-20) Calcium Level 9.1 mg/dl (8.5-10.1) Troponin I < 0.015 ng/ml (0-0.045) Laboratory results reviewed by me Medications Administered Medications (Trade) Dose Ordered Sig/Rut Route Start Time Stop Time Status Last Admin Dose Admin Ondansetron HCl (Zofran Inj) 4 mg NOW STAT IV 10/20/16 18:02 10/20/16 18:06 DC 10/20/16 18:22 4 MG Hydromorphone HCl (Dilaudid Inj) 0.5 mg NOW STAT IV 10/20/16 18:02 10/20/16 18:06 DC 10/20/16 18:23 0.5 MG ECG Indication: other (headache) Rate (beats per minute): 63 Rhythm: normal sinus Findings: no acute ischemic change, no ectopy ED Course 1753: The patient was evaluated in room A08. A complete history and physical exam was performed. 1801: Dilaudid Injection 0.5 mg IV, Zofran Injection 4 mg IV. 1810: I discussed the patient's case with Dr. Hodan Lopez. 1941: I reevaluated the patient and he is resting comfortably. He is still waiting on the blood patch. 1946: I discussed the patient's case with Dr. Bernardo Moe, Anesthesiology. He states he will administer the patient's blood patch. 2019: Blood patch was performed successfully. Anesthesia will reevaluate the patient prior to discharge at 9 PM. Discussed discharge with the patient and his father. Medical Decision Triage Nursing notes reviewed. The patient's presentation and history were concerning for headache post lumbar puncture. Etiologies such as post lumbar puncture headache, migraine, tumor, headache, sinus thrombosis, temporal arteritis, sinusitis, CVA, ICH, SAH, infection, as well as others were entertained. The patient was evaluated yesterday by me. We elected for conservative management using sheer decision making. The patient actually got much better using IV caffeine and Toradol. Unfortunately several hours after getting home his symptoms began to return and despite taking Fioricet he continued to have a postural headache. Clinically he looks well. His examination was nonfocal. Blood work was performed. The patient was given a dose of IV Dilaudid and Zofran. I did consult with anesthesia, Dr. Lopez to discuss the possibility of blood patch. The patient was evaluated by Dr. Moe in the emergency department and a blood patch was performed. This was successful. The patient felt well. Conservative management was discussed. He was discharged by anesthesia. By the evaluation outlined above other emergent etiologies such as those listed in the differential, as well as others, were deemed relatively unlikely. The patient was educated about the findings as listed above. All questions were answered and the patient was pleased with the treatment. Return instructions were outlined and the patient was discharged in stable condition. Medication Reconcilliation Current Medication List: was personally reviewed by me Blood Pressure Screening Patient's blood pressure: Elevated blood pressure Blood pressure disposition: Elevated BP felt to be situational Consults Time Called: 1810 Consulting Physician: Dr. Hodan Lopez, [facility] Hospitalist Returned Call: 1810 I discussed the patient's case with Dr. Hodan Lopez. Additional Consults: Time Called: 1946 Consulted Physician: Dr. Bernardo Moe, Anesthesiology Returned Call: 1946 Additional Comments: I discussed the patient's case with Dr. Bernardo Moe, Anesthesiology. He states he will administer the patient's blood patch. Impression Primary Impression: Post lumbar puncture headache Scribe Attestation The scribe's documentation has been prepared under my direction and personally reviewed by me in its entirety. I confirm that the note above accurately reflects all work, treatment, procedures, and medical decision making performed by me. Departure Information Dispostion Home / Self-Care Referrals No Doctor, Assigned (PCP) Patient Instructions My [facility] Additional Instructions HEADACHE INSTRUCTIONS: DO NOT drive, drink alcohol, operate machinery, or perform dangerous activities today. You were given medications in the ER that can affect your ability to safely function or operate a vehicle. Rest today in a quiet, peaceful, dark environment and get a full 8-10 hrs of sleep tonight. No heavy lifting or physical exertion for the next week. Ibuprofen(Motrin, Advil) may be used for fever or pain. Use 600mg every six hours as needed. Take with food. Avoid using more than 2400mg in a 24 hour period. Do not use 2400mg per day for more than three consecutive days without physician direction. Prolonged inappropriate use can lead to stomach upset or ulcers. (AND/OR) Acetaminophen(Tylenol) may be used for fever or pain. Use 1000mg every six hours as needed. Avoid using more than 4000mg in a 24 hour period. Return to the ER for passing out, worsening headache, vision problems, neck stiffness/pain, fevers, vomiting, worsening of your condition, or as needed.
--- NOTE | 2016-10-20 21:01 | Medical Consult ---
Consultation Note Date of Service Oct 20, 2016. Consultation Note Patient is a healthy 21 year old M who presented 3 days ago to the ED with headache, neck stiffness, and flu like symptoms. A lumbar puncture was performed to r/o meningitis of which both the labs and cultures have been negative. The patient's flu like symptoms have resolved, but 1 day after the LP he developed a positional headache that became excruciating when seated or standing and abated when laying flat. He has no other neurologic or red flag symptoms. Conservative treatment was successful, but the headache returned after discharge and the patient now presents one day later with increasingly intense pain. Anesthesia department was consulted to consider an epidural blood patch. Labs and studies were unremarkable. Focal neuro exam revealed no abnormalities. The lumbar spine has a puncture wound and pen markings around the L4/5 or the L5/S1 interspinous space. 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 The patient chose blood patch and informed consent was obtained. In a seated position under sterile technique, the same interspace as had been previously used was approached with a 17G tuhoy needle. ELISABETH was found at 4.5cm to saline. Also under sterile conditions, an ED hydro plant technician performed 18G IV placement in the L anticubital fossa and 20cc of blood was drawn. This blood was injected slowly in to the epidural space. The patient experienced some fullness in his low back but no other symptoms. He was then asked to lay supine for 30 minutes. The patient tolerated the procedure well. After 45 minutes, the patient was seated and had complete resolution of his symptoms. His low back cramping had also resolved. He may be discharged per the ED. Thank you for the consultation.
[2016-10-20 21:04] VITALS: BP 130/74; PULSE 78; O2SAT 97
== END 2016-10-20 21:05 | disposition home or self-care (01) ==
LOC: C.EDB 17:31 → C.EDA 21:05
DX: G97.1 Other reaction to spinal and lumbar puncture (principal); R51 Headache